=== PATIENT | male | born 1990 | race Caucasian/White ===

== ENCOUNTER 2017-03-07 16:13 | Emergency (ER) | payer OTHER ==
[2017-03-07] MEDS ORDERED: Lidocaine 1% w Epi 1:100,000 Inj INJ STA (16:31)
[2017-03-07] MEDS ORDERED: Tetanus/Diphtheria Toxoids 0.5 ml Syringe IM ONE (16:31)
[2017-03-07] MEDS ORDERED: Bacitracin 500 Units/gm Oint Foilpak UD TOP STA (16:34)
[2017-03-07] MEDS ORDERED: Lidocaine 2% w Epi 1:100,000 Inj IJ ONE (16:35)
[2017-03-07 16:51] VITALS: TEMP 98.9; O2SAT 100
--- NOTE | 2017-03-07 17:23 | C.PDOC ---
History Of Present Illness 26 y/o male presents to the ED with complains of laceration to right lower leg. Pt was walking by garbage when a piece of glass sticking out caught his right lateral lower leg. Pt has no other complaints at this time. Tetanus not UTD. Time Seen by Provider: 03/07/17 16:20 Chief Complaint (Nursing): Abnormal Skin Integrity History Per: Patient History/Exam Limitations: no limitations Onset/Duration Of Symptoms: Mins Current Symptoms Are (Timing): Still Present Location Of Injury: Right: Leg Severity: Moderate Recent travel outside of the [place]: No Past Medical History Reviewed: Historical Data, Nursing Documentation, Vital Signs Vital Signs: Last Vital Signs Temp 98.9 F 03/07/17 16:14 Pulse 77 03/07/17 17:41 Resp 18 03/07/17 17:41 BP 125/80 03/07/17 17:41 Pulse Ox 100 03/07/17 18:59 Family History: States: Unknown Family Hx - Social History Hx Alcohol Use: No Hx Substance Use: No Review Of Systems Except As Marked, All Systems Reviewed And Found Negative. Skin: Positive for: Other (laceration to right lateral lower leg) Physical Exam - Physical Exam Appears: Non-toxic, No Acute Distress Skin: Warm, Dry Head: Atraumatic, Normacephalic Extremity: Normal ROM, Other (6.5 cm linear laceration to right lateral lower leg; widely open through subcutaneous and fascia with visualization of tendon, tendon intact; full ROM ankle; no gross contamination) Neurological/Psych: Oriented x3, Normal Motor, Normal Sensation ED Course And Treatment O2 Sat by Pulse Oximetry: 100 (on room air) Pulse Ox Interpretation: Normal Laceration - Laceration Repair No standard instances Wound Length (In cm): 6.5 Description Of Wound: Linear Anesthesia: Lidocaine 1% Wound Examination: Irrigated With Saline (1L), No FB With Wound Exploration, No Tendon Injury With Wound Exploration Wound Closure: [place] (skin closed with 12 partha), Suture Suture Technique And Material Used: Interrupted, Vicryl (3 5-0 vicryl to close fascia; 5 4-0 vicryl to close subcutaneous) Wound Complexity: Complex Medical Decision Making Medical Decision Making: Following laceration repair, bacitracin applied. Pt given tetanus vaccination, Rx keflex for infection prophylaxis, crutches for ambulation. Instructed patient to follow up in ED or with PMD in 2 days for wound check. Disposition - Disposition Disposition: HOME/ ROUTINE Disposition Time: 17:19 Condition: IMPROVED Additional Instructions: Follow up with PMD within 1-2 days. Return to ED immediately if feel worse. Wound check in 2 days. Staple removal in 14 days. Prescriptions: Bacitracin OINT 1 applic TP TID #45 g Cephalexin [cephalexin] 500 mg PO Q6 #28 cap Ibuprofen [Motrin Tab] 600 mg PO Q8 #30 tab traMADol [Ultram] 50 mg PO Q6 #10 tab Instructions: Laceration (ED) - Clinical Impression Clinical Impression: Leg laceration - PA / INSURANCE COMPLIANCE ANALYST / Resident Statement MD/DO has reviewed & agrees with the documentation as recorded. - Scribe Statement The provider has reviewed the documentation as recorded by the Scribmarlene Lin All medical record entries made by the Stephanieibmarlene were at my direction and personally dictated by me. I have reviewed the chart and agree that the record accurately reflects my personal performance of the history, physical exam, medical decision making, and the department course for this patient. I have also personally directed, reviewed, and agree with the discharge instructions and disposition.
[2017-03-07 17:41] VITALS: BP 125/80; PULSE 77; RESP 18
== END 2017-03-07 18:08 | disposition home or self-care (01) ==
LOC: C.ER 16:13
DX: S81.811A Laceration without foreign body, right lower leg, initial encounter (principal); W25.XXXA Contact with sharp glass, initial encounter; Y92.414 Local residential or business street as the place of occurrence of the external cause